=== PATIENT | female | born 1965 | race Caucasian/White ===

== ENCOUNTER → 2019-06-15 | Outpatient (CLI) | payer MEDICARE, OTHER ==
[~2019-06-15] MED LIST: AMOCLA875 PO; CARB200; CITA20 PO; HYDACE5 PO; NAPR500; Norco 5-325 Ta1 EACH PO; RXHYDACE PO; SERT100 PO; THYR60
== END | disposition home or self-care (01) ==
LOC: PLD 08:01 → LAB SHORT 08:01
DX: L82.1 Other seborrheic keratosis (principal)
CPT/HCPCS: 88305

== ENCOUNTER 2022-10-10 08:56 | Inpatient (IN) | payer MEDICARE, OTHER ==
[~2022-10-10] VITALS: Ht 175.3 cm; Wt 90.7 kg
[2022-10-10 10:05] LABS: Albumin, Blood 3.3 g/dL (3.4-5.0); Albumin/Globulin Ratio 0.7 (0.8-1.8); Bilirubin, Total 0.4 mg/dL (0.1-1.0); Bun/Creatinine Ratio 21.5 (12.0-20.0); Calcium, Blood 9.2 mg/dL (8.5-10.1); Creatinine, Blood 0.93 mg/dL (0.40-1.00); Globulin, Blood 4.5 g/dL (2.2-4.0); Potassium, Blood 4.7 mmol/L (3.5-5.5); Total Protein, Blood 7.8 g/dL (6.4-8.2)
[2022-10-10 10:32] LABS: BASOPHILS ABSOLUTE AUTO 0.08 K/mm3 (0.00-0.23); BASOPHILS PERCENT AUTO 1 % (0-2); EOSINOPHILS ABSOLUTE AUTO 0.69 K/mm3 (0.00-0.68); EOSINOPHILS PERCENT AUTO 4 % (0-6); Hematocrit 47.8 % (33.0-51.0); Hemoglobin 15.3 g/dL (11.5-16.0); IMMATURE GRAN ABSOLUTE AUTO 0.07 K/mm3 (0.00-0.10); IMMATURE GRAN PERCENT AUTO 0 % (0-1); LYMPHOCYTES ABSOLUTE AUTO 1.84 K/mm3 (0.84-5.20); LYMPHOCYTES PERCENT AUTO 11 % (21-46); MONOCYTES ABSOLUTE AUTO 0.72 K/mm3 (0.16-1.47); MONOCYTES PERCENT AUTO 4 % (4-13); Mean Corpuscular HGB 28.9 pg (26.0-34.0); Mean Corpuscular Volume 90 fL (80-100); Mean Platelet Volume 10.3 fL (9.1-12.4); NEUTROPHILS ABSOLUTE AUTO 13.35 K/mm3 (1.96-9.15); NEUTROPHILS PERCENT AUTO 80 % (41-73); Platelet Count 392 K/mm3 (150-400); RDW Coefficient Variation 12.8 % (11.7-14.2); RDW Standard Deviation 41.7 fL (35.1-46.3); White Blood Cell Count 16.75 K/mm3 (4.00-11.30)
--- NOTE | 2022-10-10 15:57 | NUR ---
10/10/22 1557 Dianelys Parra PT ON SCHEDULED ANTIBIOTICS
--- NOTE | 2022-10-10 18:17 | NUR ---
ARRIVAL TO UNIT PT ARRIVED TO UNIT FROM PACU ON BED. PT AWAKENS AND ANSWERS ALL QUESTIONS APPROPRIATLY. SHE WILL QUICKLY FALL ASLEEP AND BEGIN SNORING. AA0X4 AT THIS TIME. PICCO DRESSING CDI, SMALL SANGUINOUS DRAINAGE AT TOP OF DRESSING, OUTLINED AT THIS TIME. LETTY DRAIN COMPRESSED WITH SEROSANGUINOUS DRAINAGE. ABDOMEN SOFT TO TOUCH, PT DENIES TENDERNESS. LEFT HAND CONTRACTURED, PT REPORTS BASELINE. CONT BIOX APPLIED. SIGNIFICANT OTHER AT BEDSIDE, CALL LIGHT IN REACH.
[2022-10-10] MEDS ORDERED: VENL37.5ER PO (23:06)
[2022-10-10] MEDS ORDERED: PROG100 PO (23:06)
[2022-10-10] MEDS ORDERED: MYRBETRIQ50 MG PO (23:08)
[2022-10-10] MEDS ORDERED: MYRBETRIQ25 MG PO (23:08)
[2022-10-10] MEDS ORDERED: ATOR10 PO (23:09)
[2022-10-10] MEDS ORDERED: LEVSOD100 PO (23:09)
[2022-10-11 04:33] LABS: BASOPHILS ABSOLUTE AUTO 0.02 K/mm3 (0.00-0.23); BASOPHILS PERCENT AUTO 0 % (0-2); EOSINOPHILS PERCENT AUTO 0 % (0-6); Hemoglobin 12.7 g/dL (11.5-16.0); IMMATURE GRAN ABSOLUTE AUTO 0.04 K/mm3 (0.00-0.10); IMMATURE GRAN PERCENT AUTO 0 % (0-1); LYMPHOCYTES ABSOLUTE AUTO 0.95 K/mm3 (0.84-5.20); LYMPHOCYTES PERCENT AUTO 7 % (21-46); MONOCYTES PERCENT AUTO 7 % (4-13); Mean Corpuscular HGB 29.4 pg (26.0-34.0); Mean Corpuscular HGB Conc 31.8 g/dL (31.5-36.5); Mean Corpuscular Volume 93 fL (80-100); Mean Platelet Volume 10.1 fL (9.1-12.4); NEUTROPHILS ABSOLUTE AUTO 12.56 K/mm3 (1.96-9.15); NEUTROPHILS PERCENT AUTO 86 % (41-73); Platelet Count 275 K/mm3 (150-400); RDW Standard Deviation 44.3 fL (35.1-46.3); Red Blood Cell Count 4.32 M/mm3 (3.80-5.20); White Blood Cell Count 14.57 K/mm3 (4.00-11.30)
[2022-10-11 04:54] LABS: Albumin, Blood 2.8 g/dL (3.4-5.0); Albumin/Globulin Ratio 0.7 (0.8-1.8); Bilirubin, Total 0.5 mg/dL (0.1-1.0); Calcium, Blood 8.6 mg/dL (8.5-10.1); Creatinine, Blood 0.88 mg/dL (0.40-1.00); Globulin, Blood 4.2 g/dL (2.2-4.0); Magnesium, Blood 2.4 mg/dL (1.6-2.4); Potassium, Blood 4.3 mmol/L (3.5-5.5)
--- NOTE | 2022-10-11 05:01 | NUR ---
SHIFT SUMMARY POD1 EXP LAP WITH ARUNA PATCH REPAIR OF DUODENAL ULCER WITH DR. GALLAGHER. PT HAS NG TUBE, NOT ON SUCTION. VSS. PT ON 3L NC, SATS 90-95%, DESATS INTERMITTENTLY WHILE IN DEEP SLEEP. PT MAY HAVE UNDIAGNOSED STACY, SHE REPORTS THAT SHE WAS SUPPOSED TO DO SLEEP STUDY, BUT NEVER DID ONE. ADVISE TO F/U WITH PCP. PT HAS MIDLINE REYES DRESSING WITH SMALL SHADOWING, REMAINED UNCHANGED OVERNIGHT. LETTY DRAIN ON RUQ WITH 40MLS SEROSANG DRAINAGE. LR INFUSING AT 150MLS/HR. DINKEY LOCOMOTIVE ENGINEER FENTANYL FOR PAIN MANAGEMENT. PT AOX4. COOPERATIVE WITH CARE. NPO, OK WITH ICE CHIPS. DENIES NAUSEA AND VOMITING. VSS. NOEL INTACT AND DRAINING. CALL LIGHT WITHIN REACH. WILL PROVIDE REPORT TO ONCOMING NURSE.
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
--- NOTE | 2022-10-12 10:49 | NUR ---
NOEL CATH DC'D THIS AM, PT HAS BEEN UP TO BSC TO VOID WITH ASSIST, TOLERATED WELL.
--- NOTE | 2022-10-12 12:47 | NUR ---
INCENTIVE SPIROMETER GIVEN W/ INSTRUCTIONS, PT DEMONSTRATED PROPER USE.
--- NOTE | 2022-10-12 16:20 | NUR ---
LETTY DRAIN DSG NOTED SATURATED W/ SEROUSANG. DRAINAGE, NEW STERILE DRAIN SPONGE PLACED, SECURED W/ MEFIX TAPE, PT SAT UP ON THE CHAIR THIS AFTERNOON, TOLERATED FAIRLY WELL W/ WEAKNESS ON L ARM.
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
--- NOTE | 2022-10-13 06:31 | NUR ---
SHIFT SUMMARY NO ACUTE CHANGES OVERNIGHT. S/P EXP LAP RESECTION WITH ARUNA PATCH. NG TUBE AT LIS. COMMERCIAL ANALYST FENTANYL FOR PAIN. PT REPORTS PAIN HAS BEEN MINIMAL. COMFORTABLE IN BED. PT GOT UP IN THE BSC TO VOID WITH 2 PERSON ASSIST. VOIDING. PASSING FLATUS. DENIES BM OVERNIGHT. NPO,OK FOR ICE CHIPS. ICE CHIPS AT 250MLS, NG TUBE OUTPUT OF 300MLS. BED BATH LAST NIGHT. ATTENDS IN PLACE, INCONTINENCE. IV ON R HAND WITH LR INFUSING AND IV ABX. CALL LIGHT WITHIN REACH. WILL PROVIDE REPORT TO ONCOMING NURSE.
[2022-10-13 08:13] LABS: BASOPHILS ABSOLUTE AUTO 0.03 K/mm3 (0.00-0.23); BASOPHILS PERCENT AUTO 1 % (0-2); EOSINOPHILS ABSOLUTE AUTO 0.31 K/mm3 (0.00-0.68); EOSINOPHILS PERCENT AUTO 5 % (0-6); Hemoglobin 10.6 g/dL (11.5-16.0); IMMATURE GRAN ABSOLUTE AUTO 0.02 K/mm3 (0.00-0.10); IMMATURE GRAN PERCENT AUTO 0 % (0-1); LYMPHOCYTES PERCENT AUTO 8 % (21-46); MONOCYTES ABSOLUTE AUTO 0.35 K/mm3 (0.16-1.47); MONOCYTES PERCENT AUTO 5 % (4-13); Mean Corpuscular HGB 29.7 pg (26.0-34.0); Mean Corpuscular HGB Conc 32.1 g/dL (31.5-36.5); Mean Corpuscular Volume 92 fL (80-100); Mean Platelet Volume 9.9 fL (9.1-12.4); NEUTROPHILS ABSOLUTE AUTO 5.37 K/mm3 (1.96-9.15); NEUTROPHILS PERCENT AUTO 82 % (41-73); Platelet Count 206 K/mm3 (150-400); RDW Coefficient Variation 12.5 % (11.7-14.2); RDW Standard Deviation 42.3 fL (35.1-46.3); Red Blood Cell Count 3.57 M/mm3 (3.80-5.20); White Blood Cell Count 6.58 K/mm3 (4.00-11.30)
[2022-10-13 09:06] LABS: Albumin/Globulin Ratio 0.5 (0.8-1.8); Bilirubin, Total 0.5 mg/dL (0.1-1.0); Bun/Creatinine Ratio 18.7 (12.0-20.0); Calcium, Blood 8.4 mg/dL (8.5-10.1); Creatinine, Blood 0.59 mg/dL (0.40-1.00); Globulin, Blood 4.1 g/dL (2.2-4.0); Magnesium, Blood 2.1 mg/dL (1.6-2.4); Phosphorus, Blood 2.1 mg/dL (2.5-4.9); Potassium, Blood 3.6 mmol/L (3.5-5.5); Total Protein, Blood 6.1 g/dL (6.4-8.2)
--- NOTE | 2022-10-13 18:12 | NUR ---
SUMMARY CONT. TO HAVE INTERMITTENT ABD PAIN, USES PRODUCT SAFETY AND STANDARDS ENGINEER PRN, OOB TO CHAIR X2 TODAY, USES BSC W/ 1-2 PERSON ASSIST AND BA WALKER AND GAIT BELT, TOLERATED FAIRLY WELL, WORKED W/ PT/OT TODAY, SLEPT MOST OF THE DAY, DENIES ANY NAUSEA, NGT TO LIS, W/ GREEN DRAINAGE, NO ACUTE CHANGES THIS SHIFT.
--- NOTE | 2022-10-14 05:42 | NUR ---
Patient AAOX4, out of bed with x2 nurse assist. Lt sided weakness noted at baseline. Voiding well, incontinent. NG output green/mucousy total 500 for shift. Bowel sounds hypoactive, REYES dressing unchanged. +1 edema noted in lower extremities and left hand. Pulse 2+, cap refill less than 2, warm. No questions or concerns at this time.
--- NOTE | 2022-10-14 19:21 | NUR ---
SHIFT SUMMARY POD 3 EXP LAP W/ GRAM PATCH. MIDLINE REYES HAS LIGHT SHADOWING, BUT UNCHANGED THIS SHIFT, DRY & INTACT. PAIN HAS BEEN MANAGED WELL PER EMAR T/O SHIFT. UP TO CHAIR MULTIPLE TIMES, 1P SBA W/ BA WALKER. NG TUBE REMOVED THIS SHIFT BY DR GALLAGHER, PATIENT ADVANCED TO CLEAR LIQUID DIET AND TOLEATING WELL. DENIES N/V. INCONTINT OF URINE,A TTENDS IN PLACE & CHANGED PRN. CALLS APPORPRIATELY, WILL REPORT TO ONCOMING RN.
--- NOTE | 2022-10-15 05:28 | NUR ---
Patient slept well overnight, up and out of bed with minimal assistance. Loose stool x2. Pain controlled with PRN Roxicodone. LETTY drain output minimal. Voiding well. Tolerating P.O intake.
--- NOTE | 2022-10-15 16:32 | NUR ---
SHIFT SUMMARY NO ACUTE CHANGES THIS SHIFT. PATIENT ADVANCED TO SOFT/REGULAR DIET, TOLERATING WELL. DENIES N/V. ABDOMINAL PAIN MANAGED WELL W/ OXY 5 PER EMAR. REYES DRESSING REMAINS IN PLACE, NO NEW DRAINAGE. LETTY TO RUQ, SCANT DRAINAGE THIS SHIFT. TRANSFERRING TO BSC/CHAIR WELL 1P MIN/MOD ASSIST. CALLS APPROPRIATELY, IN REACH. ANTICIPATE DISCHARGE TOMORROW. WILL REPORT TO ONCOMING RN AT 1900.
--- NOTE | 2022-10-16 04:41 | NUR ---
POD6 FOR LAPOROTOMY WITH GRAHM PATCH. MIDLINE INCISION DRESSED WITH REYES, COMPRESSED. OLD SHADOWING NOTED ON DRESSING. LETTY DRESSING CHANGED, AREA CLEANED WITH WOUND SPRAY. SS DRAINAGE NOTED ON DRESSING. LETTY HAS HAD MINIMAL OUTPUT. PT SLEPT WELL T/O THE NIGHT. INCONTINENT VOIDS AND STOOL NOTED T/O THE NIGHT. PT TOLLERATING PO INTAKE W/O N/V. NO ACUTE EVENTS NOTED TONIGHT. PLAN FOR PT TO D/C TO [facility] TODAY. THE PATIENT IS CURRENTLY SLEEPING, IN NO DISTRESS, CALL LIGHT IN REACH
[2022-10-16 12:48] LABS: SARS-Cov-2 (COVID-19) PCR, MMC NEGATIVE (NEGATIVE)
--- NOTE | 2022-10-16 17:59 | NUR ---
SHIFT SUMMARY PT POD #5 FOR EX LAP WITH ARUNA PATCH. MIDLINE REYES DRESSING WITH SOME OLD DRAINAGE. DRESSING IS DRY AND INTACT. LETTY DRAIN REMOVED BY SURGEON THIS AM. PT REPORTS TENDERNESS AT OLD LETTY SITE WHICH IS TOLERABLE AT THIS TIME. PT 1 ASSIST WITH BA WALKER TO [facility] [place]. L SIDED WEAKNESS NOTED DUE TO PRIOR CVA. REPORT GIVEN TO [facility] AND AIR DELIVERY SPECIALIST. VSS.
== END 2022-10-16 18:19 | DRG 329 ==
LOC: ER 08:56 → SURS 14:55
PROVIDERS: Physician Assistant; ADMIT Surgery
PROC: 0DH67UZ Insertion of Feeding Device into Stomach, Via Natural or Artificial Opening (ICD-10-PCS; 2022-10-10)
PROC: 0DU907Z Supplement Duodenum with Autologous Tissue Substitute, Open Approach (ICD-10-PCS; principal; 2022-10-10 15:30)
DX: K26.1 Acute duodenal ulcer with perforation (principal); K65.9 Peritonitis, unspecified; K66.8 Other specified disorders of peritoneum; K21.9 Gastro-esophageal reflux disease without esophagitis; E03.9 Hypothyroidism, unspecified; E78.5 Hyperlipidemia, unspecified; E66.9 Obesity, unspecified; Z20.822 Contact with and (suspected) exposure to COVID-19; Z86.73 Personal history of transient ischemic attack (TIA), and cerebral infarction without residual deficits; Z98.51 Tubal ligation status; Z79.899 Other long term (current) drug therapy; Z79.891 Long term (current) use of opiate analgesic; Z68.29 Body mass index [BMI] 29.0-29.9, adult
CPT/HCPCS: 36415; 71045; 71260; 74177; 74240; 76705; 80053; 83690; 83735; 83880; 84100; 84484; 85025; 85379; 86850; 86870; 86900; 86901; 86905; 87338; 93005; 93010; 94640; 94664; 94762; 96361; 96374-59; 96375-59; 96376-59; 97110; 97116; 97162; 97166; 97530; 97535; 99285-25; A9270; C9113; J0330; J1100; J1170; J1650; J1885; J2270; J2310; J2370; J2405; J2543; J2704; J2795; J3010; J7030; J7050; J7120; Q9967; U0004

== ENCOUNTER 2023-08-31 20:47 | Emergency (ER) | payer OTHER, MEDICARE ==
[~2023-08-31] VITALS: Ht 160 cm; Wt 99.8 kg
[~2023-08-31 20:47] MED LIST changes: +ATOR10 PO; +LEVSOD100 PO; +MYRBETRIQ25 MG PO; +MYRBETRIQ50 MG PO; +PROG100 PO; +VENL37.5ER PO
[2023-08-31 20:51] VITALS: BP 169/106
== END 2023-08-31 23:18 | disposition home or self-care (01) ==
LOC: ER 20:47
DX: S93.601A Unspecified sprain of right foot, initial encounter (principal); W01.0XXA Fall on same level from slipping, tripping and stumbling without subsequent striking against object, initial encounter; Z79.890 Hormone replacement therapy; Z79.899 Other long term (current) drug therapy
CPT/HCPCS: 73630; 99283-25

== ENCOUNTER 2024-09-29 10:37 | Day surgery (SDC) | payer MEDICARE, OTHER ==
[~2024-09-29] VITALS: Ht 160 cm; Wt 103.3 kg
[~2024-09-29 10:37] MED LIST changes: +LEVSOD75 PO; +Lactated Ringer's 1,000 ML IV SCH
--- NOTE | 2024-09-29 10:58 | NUR ---
Ambulatory in Day Surgery PT HAS BRACE ON LLE AND HAS NO USE OF LEFT ARM. Patient confirms NPO status and agrees with scheduled surgery. Pre-Op teaching done. Pt verbalizes understanding. History, Chart, Medications and Allergies reviewed before start of procedure.Patient States Post-Procedure ride home has been arranged.
[2024-09-29 11:12] VITALS: BP 163/95
[2024-09-29] MEDS ORDERED: propofoL 60 ML IV ONE (11:56)
--- NOTE | 2024-09-29 12:00 | NUR ---
09/29/24 [address] JOHNSON; SEE ANESTHESIA RECORDS.
[2024-09-29] MEDS ORDERED: propofoL 20 ML IV ONE (12:08)
[2024-09-29 13:15] VITALS: BP 142/81
--- NOTE | 2024-09-29 13:16 | NUR ---
REPORT RECEIVED FROM ALEJANDRO PATEL. VSS. PT ON RA. PT ABLE TO REPOSITION SELF IN BED. PT REQUESTING PO FLUIDS AND TOLERATING THEM WELL. PT DENIES PAIN, NAUSEA OR OTHER DISCOMFORTS.
--- NOTE | 2024-09-29 13:42 | NUR ---
Discharge instructions reviewed with patient. Patient verbalizes understanding. Copy given to patient to take home. PT TOLERATED JUICE WELL. NO REPORTS OF PAIN OR NAUSEA. PT HAS LEFT SIDED WEAKNESS. UNABLE TO USE LEFT ARM. ALL BELONGINGS RETURNED TO PT. Discharged via wheelchair to private car for ride home WITH "BOYFRIEND".
== END 2024-09-29 13:44 | disposition home or self-care (01) ==
LOC: ORSCMMR 10:37 → ORD 11:30 → ORSCMMR 13:44
PROVIDERS: Surgery
PROC: 0DB98ZX Excision of Duodenum, Via Natural or Artificial Opening Endoscopic, Diagnostic (ICD-10-PCS; principal; 2024-09-29 11:30)
PROC: 0DB78ZX Excision of Stomach, Pylorus, Via Natural or Artificial Opening Endoscopic, Diagnostic (ICD-10-PCS; principal; 2024-09-29 11:30)
PROC: 0DBH8ZX Excision of Cecum, Via Natural or Artificial Opening Endoscopic, Diagnostic (ICD-10-PCS; principal; 2024-09-29 11:30)
PROC: 0DBP8ZX Excision of Rectum, Via Natural or Artificial Opening Endoscopic, Diagnostic (ICD-10-PCS; principal; 2024-09-29 11:30)
DX: Z12.11 Encounter for screening for malignant neoplasm of colon (principal); K29.80 Duodenitis without bleeding; K29.50 Unspecified chronic gastritis without bleeding; K31.7 Polyp of stomach and duodenum; D12.2 Benign neoplasm of ascending colon; K62.1 Rectal polyp; E78.00 Pure hypercholesterolemia, unspecified; I69.354 Hemiplegia and hemiparesis following cerebral infarction affecting left non-dominant side; E66.01 Morbid (severe) obesity due to excess calories; Z68.41 Body mass index [BMI] 40.0-44.9, adult; E78.2 Mixed hyperlipidemia; E03.9 Hypothyroidism, unspecified; G47.33 Obstructive sleep apnea (adult) (pediatric); Z79.899 Other long term (current) drug therapy
CPT/HCPCS: 88305; 88342; J2704; J7120